=== PATIENT | male | born 2000 | race Caucasian/White ===

== ENCOUNTER 2021-03-27 21:49 | Emergency (ER) | payer BC, OTHER ==
[~2021-03-27] VITALS: Ht 185.4 cm; Wt 124.6 kg
--- NOTE | 2021-03-27 23:51 | NUR ---
NO ANS X 1
--- NOTE | 2021-03-28 00:02 | NUR ---
TO ROOM FROM LOBBY. NAD.
--- NOTE | 2021-03-28 00:08 | NUR ---
PT PRESENTS TO ED C/O "HEMORRHOIDS BURST EARLIER, I JUST GOT WORRIED. THERE WAS SOME BLOOD." PT SITTING UPRIGHT ON TIFFANIE ACOSTA, VSCheri. PT DENIES ANY NEEDS AT THIS TIME. CALL LIGHT AND PERSONAL BELONGINGS WITHIN REACH. AWAITING ERP.
[2021-03-28 00:26] VITALS: BP 140/76
--- NOTE | 2021-03-28 00:56 | NUR ---
Patient given discharge instructions and they have confirmed that they understand the instructions. Patient ambulatory with steady gait. NAD, all questions answered appropriately, denies additional needs at this time. No personal belongings left in room after discharge.
== END 2021-03-28 00:57 | disposition home or self-care (01) ==
LOC: ED 03-28 00:01
DX: K64.4 Residual hemorrhoidal skin tags (principal)
CPT/HCPCS: 99283